=== PATIENT | female | born 1995 | race Caucasian/White ===

== ENCOUNTER 2016-09-09 13:34 | Emergency (ER) | payer SELFPAY ==
[~2016-09-09] VITALS: Ht 157.5 cm; Wt 98.1 kg
[2016-09-09 13:37] VITALS: BP 134/85
== END 2016-09-09 14:45 | disposition home or self-care (01) ==
LOC: ED 14:30
DX: S91.342A Puncture wound with foreign body, left foot, initial encounter (principal); W22.8XXA Striking against or struck by other objects, initial encounter; Y93.89 Activity, other specified; Y99.8 Other external cause status; Y92.89 Other specified places as the place of occurrence of the external cause
CPT/HCPCS: 10120

== ENCOUNTER 2016-09-15 09:21 | Emergency (ER) | payer MEDICAID ==
[~2016-09-15] VITALS: Ht 157.5 cm; Wt 96.5 kg
[2016-09-15 12:29] VITALS: BP 112/62
== END 2016-09-15 12:35 | disposition home or self-care (01) ==
LOC: ED 10:23
DX: S00.03XA Contusion of scalp, initial encounter (principal); G56.01 Carpal tunnel syndrome, right upper limb; W22.8XXA Striking against or struck by other objects, initial encounter; Y93.89 Activity, other specified; Y92.89 Other specified places as the place of occurrence of the external cause; Y99.8 Other external cause status
CPT/HCPCS: 36415; 70450; 84702

== ENCOUNTER 2016-09-15 23:18 | Emergency (ER) | payer MEDICAID ==
[~2016-09-15] VITALS: Ht 157.5 cm; Wt 95.7 kg
[2016-09-15] MEDS ORDERED: ONDANSETRON 2MG/ML, 2ML ONE (23:46)
[2016-09-15 23:57] VITALS: BP 116/74
[2016-09-16] MEDS ORDERED: ONDANSETRON 2MG/ML, 2ML IVPush ONE
[2016-09-16] MEDS ORDERED: SODIUM CHLORIDE 0.9% 1,000ML IVBOLUS ONE
[2016-09-16] MEDS ORDERED: SODIUM CHLORIDE FLUSH 10ML SYR IVF ONE
[2016-09-16 00:16] LABS: ASPARTATE AMINO TRANSFERASE 21 U/L (15-37); BLOOD UREA NITROGEN 10 mg/dL (7-18)
== END 2016-09-16 01:36 | disposition home or self-care (01) ==
LOC: ED 23:59
DX: R10.84 Generalized abdominal pain (principal); R11.2 Nausea with vomiting, unspecified
CPT/HCPCS: 36415; 80053; 83690; 84703; 85025; 96361; 96374; 99285; J2405; J7030

== ENCOUNTER 2016-09-26 08:51 | Emergency (ER) | payer MEDICAID ==
[~2016-09-26] VITALS: Ht 157.5 cm; Wt 95.3 kg
[2016-09-26 08:54] VITALS: BP 126/83
== END 2016-09-26 09:30 | disposition home or self-care (01) ==
LOC: ED 09:24
DX: L60.0 Ingrowing nail (principal)
CPT/HCPCS: 99283

== ENCOUNTER 2016-10-25 13:19 | Emergency (ER) | payer MEDICAID ==
[~2016-10-25] VITALS: Ht 157.5 cm; Wt 96.3 kg
[2016-10-25 14:07] LABS: BLOOD UREA NITROGEN 10 mg/dL (7-18)
[2016-10-25 14:21] LABS: ASPARTATE AMINO TRANSFERASE 16 U/L (15-37)
[2016-10-25 16:32] VITALS: BP 133/87
== END 2016-10-25 16:35 | disposition home or self-care (01) ==
LOC: ED 15:11
DX: S16.1XXA Strain of muscle, fascia and tendon at neck level, initial encounter (principal); N30.91 Cystitis, unspecified with hematuria; G56.00 Carpal tunnel syndrome, unspecified upper limb; X58.XXXA Exposure to other specified factors, initial encounter; Y93.89 Activity, other specified; Y92.89 Other specified places as the place of occurrence of the external cause; Y99.8 Other external cause status
CPT/HCPCS: 36415; 80053; 81001; 83690; 84703; 85025; 87086; 99284

== ENCOUNTER 2016-11-02 21:14 | Emergency (ER) | payer MEDICAID ==
[~2016-11-02] VITALS: Ht 154.9 cm; Wt 82.0 kg
[2016-11-02] MEDS ORDERED: KETOROLAC 30 MG/1 ML ONE (21:27)
[2016-11-02] MEDS ORDERED: KETOROLAC 30 MG/1 ML IM ONE (21:30)
[2016-11-02 21:41] LABS: HCG UR OBC PASS
[2016-11-02 21:47] LABS: ASPARTATE AMINO TRANSFERASE 18 U/L (15-37); BLOOD UREA NITROGEN 8 mg/dL (7-18)
[2016-11-02 23:00] VITALS: BP 136/80
== END 2016-11-02 23:02 | disposition home or self-care (01) ==
LOC: ED 22:30
DX: R10.9 Unspecified abdominal pain (principal)
CPT/HCPCS: 36415; 76700; 80053; 81001; 81025; 83690; 85025; 96372; 99285; J1885

== ENCOUNTER 2016-11-20 16:18 | Emergency (ER) | payer MEDICAID ==
[~2016-11-20] VITALS: Ht 154.9 cm; Wt 96.7 kg
[2016-11-20 16:19] VITALS: BP 139/88
== END 2016-11-20 17:08 | disposition home or self-care (01) ==
LOC: ED 17:02
DX: J00 Acute nasopharyngitis [common cold] (principal); B97.89 Other viral agents as the cause of diseases classified elsewhere
CPT/HCPCS: 99283

== ENCOUNTER 2016-12-20 06:36 | Emergency (ER) | payer MEDICAID ==
[~2016-12-20] VITALS: Ht 154.9 cm; Wt 95.7 kg
[2016-12-20 06:40] VITALS: BP 121/79
[2016-12-20 08:07] LABS: HEMATOCRIT 40.8 % (34.6-47.8); HEMOGLOBIN 13.8 g/dL (11.7-16.4); WHITE BLOOD COUNT 8.5 x10^3/uL (4.5-13.2)
[2016-12-20 08:16] LABS: ASPARTATE AMINO TRANSFERASE 17 U/L (15-37); BLOOD UREA NITROGEN 7 mg/dL (7-18)
== END 2016-12-20 08:58 | disposition home or self-care (01) ==
LOC: ED 08:03
DX: N30.90 Cystitis, unspecified without hematuria (principal); N39.0 Urinary tract infection, site not specified
CPT/HCPCS: 36415; 80053; 81001; 83690; 84703; 85025; 87086; 99284